=== PATIENT | male | born 1990 | race Hispanic/Latino ===

== ENCOUNTER 2021-11-19 10:42 | Emergency (ER) | payer BC, OTHER ==
[~2021-11-19] VITALS: Ht 175.3 cm; Wt 133.8 kg
[2021-11-19 12:09] LABS: BASOPHILS % (AUTO) 0.4 % (0.0-5.0); EOSINOPHILS % (AUTO) 4.7 % (0.0-8.0); HEMATOCRIT 41.5 % (42-54); LYMPHOCYTES % (AUTO) 16.7 % (21.0-51.0); MEAN CORPUSCULAR VOLUME 88.3 fL (79-99); MONOCYTES % (AUTO) 8.5 % (3.0-13.0); NEUTROPHILS % (AUTO) 69.3 % (40.0-77.0); PLATELET COUNT (AUTO) 232 K/uL (130-400); RED CELL DISTRIBUTION WIDTH 12.8 % (11.0-15.5); WHITE BLOOD COUNT (AUTO) 11.2 K/uL (4.8-10.8)
[2021-11-19 12:24] LABS: CREATININE 0.9 mg/dL (0.5-1.5)
[2021-11-19 12:25] LABS: ALBUMIN 3.7 g/dL (3.5-5.0)
[2021-11-19] MEDS ORDERED: LACTATED RINGERS 1000ML 1,000 ML IV ONE (12:30)
[2021-11-19 15:37] VITALS: BP 116/73
== END 2021-11-19 16:12 | disposition home or self-care (01) ==
LOC: EDH 10:42
DX: E86.0 Dehydration (principal); F41.9 Anxiety disorder, unspecified; I10 Essential (primary) hypertension
CPT/HCPCS: 36415; 80053; 84484; 85025

== ENCOUNTER 2024-06-09 11:27 | Emergency (ER) | payer BC ==
[~2024-06-09] VITALS: Ht 175.3 cm; Wt 129.3 kg
[~2024-06-09 11:27] MED LIST: OMEP40CA21 PO; SUCR1TAB28 PO
--- NOTE | 2024-06-09 12:01 | ERN ---
General Chief Complaint: Groin Pain Stated Complaint: PENIS ISSUE Time Seen by MD: 11:29 History of Present Illness Initial Comments 33-year-old male, obese, otherwise unremarkable middle of the history, who presents for left-sided testicular pain in the lower abdominal pain. Patient reports last night he noticed some pain to the left lower testicle. Reports that now he feels some discomfort with nausea. No flank pain. No fevers. No vomiting. No dysuria. No hematuria. He has no other complaints. No medical or surgical history otherwise. He denies trauma. He denies STI risk. Allergies: Coded Allergies: No Known Allergies (Unverified Allergy, Unknown, 11/19/21) Home Meds Active Scripts Acetaminophen with Codeine (Acetaminophen-Cod #3 Tablet) 300 Mg-30 Mg Tablet, 1 TAB PO TIDP PRN for pain for 5 Days, #15 TAB 0 Refills Prov:JHONNY BRAVO DO 06/09/24 Sucralfate (Carafate) 1 Gram Tablet, 1 GM PO ACHS for 10 Days, #40 TAB Prov:JING GODDARD NP 12/02/23 Omeprazole (Omeprazole) 40 Mg Capsule.dr, 1 CAP PO DAILY for 30 Days, #30 CAP 0 Refills Prov:JING GODDARD NP 12/02/23 Past Medical History Past Medical History: No Pertinent History Medical History Other: TINNITIS, PSORIASIS Past Surgical History: None Social History Social History: Lives with family ROS Dictation CONSTITUTIONAL: No chills, no fever, no weakness, no diaphoresis, no malaise. HEAD/FACE: No signs of trauma. EENT: No eye pain, no blurred vision, no tearing, no double vision, no ear pain, no ear discharge, no nose pain, no nasal congestion, no throat pain, no throat swelling, no mouth pain. RESPIRATORY: No cough, no orthopnea, no SOB, no stridor, no wheezing. CARDIOVASCULAR: No chest pain, no edema, no palpitations, no syncope. GASTROINTESTINAL/ABDOMINAL: No abdominal pain, no constipation, no diarrhea, no nausea, no vomiting. GENITOURINARY: Left testicular pain MUSCULOSKELETAL: No back pain, no gout, no joint pain, no joint swelling, no muscle pain, no muscle stiffness, no neck pain. INTEGUMENTARY: No change in color, no change in hair/nails, no dryness, no lesion, no lumps, no rash. NEUROLOGICAL/PSYCH: No anxiety, not depressed, no emotional problem, no headache, no numbness, no pre-existing deficit, no history of seizures, no tremors, no weakness. HEMATOLOGIC/LYMPHATIC: Not anemic, no history of blood clots, no apparent bleeding, no bruising, glands not swollen. All Systems Negative, Except as Noted. Physical Exam Physical Exam Dictation VITAL SIGNS: Reviewed. GENERAL APPEARANCE: Alert, oriented x3, no acute distress, obese. HEAD AND FACE: Non-traumatic. EYES: PERRL, pink conjunctivas, eyelid no trauma, anterior chamber clear. EARS: Pinnas intact and no signs of trauma or erythema. Ear canals clear and no discharge. TMs no erythema. NOSE: No discharge, no bleeding. OROPHARYNX: Mouth normal, teeth no caries, tongue pink. Pharynx clear, no erythema. Tonsils no exudates, no abscesses noted. Mucous membrane moist. NECK: Supple, non-tender, no thyromegaly, no masses, no JVD, no bruits. BREAST: Deferred. CHEST: No tenderness, no crepitus, no paradoxical movement, no retractions. LUNGS: Clear, well-ventilated, symmetric, no rales, no wheezing, no rhonchi, no stridor, good breath sounds bilaterally. HEART: Regular rate, regular rhythm, no murmur, no gallops. VASCULAR: No peripheral edema. ABDOMEN: Soft, positive bowel sounds, nondistended, no guarding, nontender, no rebound, no masses no hepatomegaly, no splenomegaly, no Finch's sign, no hernias. RECTAL: Deferred. GENITAL: Deferred. NEUROLOGICAL: Normal speech, gross motor function intact, gross sensory function intact. MUSCULOSKELETAL: Neck nontender, full range of motion, back nontender, full range of motion. EXTREMITIES: Nontender, full range of motion. SKIN: Color pink, dry, no turgor, no rash, no lacerations, no abrasions, no contusions. LYMPHATICS: Deferred. Results Laboratory and Microbiology Lab and Micro Result Laboratory Tests Test 06/09/24 12:30 Urine Color LIGHT-YELLOW (YELLOW) Urine Appearance CLEAR (CLEAR) Urine pH 7.0 (5.0-8.0) Urine Specific [place] 1.027 (1.001-1.031) Urine Protein NEGATIVE mg/dL (NEGATIVE) Urine Glucose (UA) NEGATIVE mg/dL (NEGATIVE) Urine Ketones NEGATIVE mg/dL (NEGATIVE) Urine Occult Blood SMALL (NEGATIVE) H Urine Nitrate NEGATIVE (NEGATIVE) Urine Bilirubin NEGATIVE mg/dL (NEGATIVE) Urine Urobilinogen 0.2 mg/dL (0.2-1.0) Urine Leukocyte Esterase NEGATIVE [place]/uL Urine RBC 6-10 /HPF (0-1) H Urine WBC 0-1 /HPF (0-1) Urine Bacteria None /HPF (None Seen) MDM CC: Left-sided testicular pain Historian: Patient Comorbidities: Obesity Limitations by social determinants of health: None Differential diagnosis: Testicular torsion, testicular mass, epididymitis, infec tion, kidney stone, other. Vital signs: Stable remained stable Clinical exam is unremarkable. Testicular exam is normal. No obvious hernia. Possibly some inguinal lymphadenopathy on the left side Urinalysis shows small occult blood otherwise unremarkable Ultrasound scrotum is unremarkable independently interpreted by me. No signs of torsion, no masses, good flow on both sides. I did order a CT scan of abdomen and pelvis to rule out a kidney stone, but the patient approach me and says he does not want to this time. He was worried about a torsion or something dangerous this testicles. He was no flank pain no vomiting p.o. tolerant nontoxic in appearance. It was point in time I think it is safe to discharge. Patient reports he was going to give it a couple of days and follow up with his PCP if he continues with pain or discomfort or return to the emergency department as needed. Plan: Discharge with Tylenol with codeine for pain control recommend return to the emergency department or PCP follow up. ED Course Orders Procedure Category Date Status Time Us Scrotum & Contents US 06/09/24 Resulted 11:53 Urinalysis LAB 06/09/24 Complete W/Microscopic 11:53 Vital Signs Date Time Temp Pulse Resp B/P (MAP) Pulse Ox O2 Delivery O2 Flow Rate FiO2 06/09/24 14:03 97.5 68 18 124/62 99 Room Air* 0 21 06/09/24 12:18 97.5 70 18 120/68 99 Room Air* 0 21 06/09/24 11:50 97.5 70 18 120/68 99 Room Air 0 DX & DISP Disposition: Discharge Departure Impression: Primary Impression: Left groin pain Additional Impression: Hematuria Condition: Stable Scripts Acetaminophen with Codeine (Acetaminophen-Cod #3 Tablet) 300 Mg-30 Mg Tablet 1 TAB PO TIDP PRN for pain for 5 Days, #15 TAB 0 Refills Prov: JHONNY BRAVO DO 06/09/24 Additional Instructions: The ultrasound does not show any dangerous findings. As we discussed there is a small lymph node that is mildly swollen. This may be related to your psoriasis. There are no other obvious signs of infection. The rest of the ultrasound is normal. Your urinalysis does show a very small amount of blood. As we discussed, this may be related to a kidney stone or other abnormality. I recommend that you take ibuprofen up to 3 times a day as needed. I have also prescribed Tylenol with codeine to use for significant pain. Monitor symptoms for the next few days. If you have any concerns or continue with symptoms after 3-5 days, I recommend follow up with your primary doctor or return to the emergency department for re-evaluation. Referrals: JENI ESTRELLA (PCP) JHONNY BRAVO DO Jun 09, 2024 12:01
[2024-06-09 12:45] LABS: APPEARANCE,URINE CLEAR (CLEAR); BILIRUBIN,URINE NEGATIVE (NEGATIVE); COLOR,URINE LIGHT-YELLOW (YELLOW); GLUCOSE, URINE (UA) NEGATIVE (NEGATIVE); KETONES,URINE NEGATIVE (NEGATIVE); LEUKOCYTE ESTERASE ,URINE NEGATIVE Leu/uL (NEGATIVE); MUCUS,URINE RARE LPF (None Seen); NITRATE,URINE NEGATIVE (NEGATIVE); OCCULT BLOOD,URINE SMALL (NEGATIVE); PROTEIN,URINE NEGATIVE (NEGATIVE); UROBILINOGEN,URINE 0.2 mg/dL (0.2-1.0); WBC,URINE 0-1 /HPF (0-1)
--- NOTE | 2024-06-09 13:05 | HMCIMG ---
ULTRASOUND OF THE TESTICLES ULTRASOUND ABD VASCULAR LIMITED INDICATION: Testicular pain COMPARISON: None FINDINGS: The right testicle measures 4.1 x 2.3 x 3.1 cm. It is normal in echogenicity without mass. No hydrocele or varicocele demonstrated. Right epididymal head measures 0.8 cm. The left testicle measures 4.0 x 2.1 x 3.0 cm. It is normal in echogenicity without mass. No hydrocele or varicocele demonstrated. Left epididymal head measures 0.6 cm. Color Doppler flow is normal throughout the both testicles.Spectral Doppler analysis demonstrates a normal waveform pattern in regards to both testicles. Bilateral scrotal wall thickness measures 5.0 mm. Normal subcentimeter left groin lymph nodes demonstrated. IMPRESSION: No evidence for any acute testicular abnormality.
[2024-06-09] MEDS ORDERED: ACET-2079 PO (13:43)
[2024-06-09 14:03] VITALS: BP 124/62; PULSE 68; RESP 18; TEMP 97.5; O2SAT 99
== END 2024-06-09 14:04 | disposition home or self-care (01) ==
LOC: EDH 11:27
DX: R10.32 Left lower quadrant pain (principal); R31.9 Hematuria, unspecified; E66.9 Obesity, unspecified; Z79.899 Other long term (current) drug therapy
CPT/HCPCS: 76870; 81001; 99284